=== PATIENT | female | born 1950 | race Two or more races ===

== ENCOUNTER 2017-08-12 11:20 | Outpatient (CLI) | payer OTHER | END 2017-08-12 12:00 | disposition home or self-care (01) | LOC: NUCLEAR 11:20 | DX: M81.0 Age-related osteoporosis without current pathological fracture (principal) ==

== ENCOUNTER 2017-11-20 08:29 | Outpatient (CLI) | payer OTHER | END 2017-11-20 08:40 | disposition home or self-care (01) | LOC: MAMO-SONO 08:29 | DX: Z12.31 Encounter for screening mammogram for malignant neoplasm of breast (principal); Z87.898 Personal history of other specified conditions; N60.19 Diffuse cystic mastopathy of unspecified breast ==

== ENCOUNTER 2018-01-27 12:11 | Outpatient (CLI) | payer OTHER | END 2018-01-27 12:15 | disposition home or self-care (01) | LOC: RAD 12:11 | DX: R91.8 Other nonspecific abnormal finding of lung field (principal) ==

== ENCOUNTER 2021-10-11 15:16 | Outpatient (CLI) | payer OTHER | END 2021-10-11 15:21 | disposition home or self-care (01) | LOC: RAD 15:16 | PROVIDERS: ATTEND Otolaryngology Otolaryngology/Facial Plastic Surgery | DX: Z01.89 Encounter for other specified special examinations (principal); J45.909 Unspecified asthma, uncomplicated ==

== ENCOUNTER 2022-11-07 08:00 | Outpatient (CLI) | payer OTHER | END 2022-11-07 08:08 | disposition home or self-care (01) | LOC: MAMO-SONO 08:00 | PROVIDERS: ATTEND Otolaryngology Otolaryngology/Facial Plastic Surgery | DX: Z12.31 Encounter for screening mammogram for malignant neoplasm of breast (principal); R10.2 Pelvic and perineal pain ==